=== PATIENT | male | born 2000 | race Two or more races ===

== ENCOUNTER 2023-06-07 18:45 | Emergency (ER) | payer SELFPAY ==
[2023-06-07] VITALS (13 sets, daily range): BP systolic 72–172; BP diastolic 31–118; PULSE 105–133; RESP 10–20; TEMP 35.3; O2SAT 98–100
--- NOTE | ~2023-06-07 | XR_ITS ---
EXAMINATION: [id number]_[id number]_CR DATE: 06/07/2023 19:27 INDICATION: Nasogastric tube placement TECHNIQUE: Portable AP view of the abdomen was obtained. COMPARISON: None. FINDINGS: Nasogastric tube tip at the gastroesophageal junction with proximal side-port in the distal esophagus . No dilated loops of gas-filled bowel in the abdomen. Heart size normal. Lung bases are clear. IMPRESSION: 1. Nasogastric tube tip at the gastroesophageal junction. Recommend advancement by 12.[address] bot h the tip and proximal side-port below the level of the gastroesophageal junction. Reviewed, dictated and finalized at location A. IMPRESSION: 1. Nasogastric tube tip at the gastroesophageal junction. Recommend advancement by 12.[address] both the tip and proximal side-port below the level of the g astroesophageal junction.
--- NOTE | ~2023-06-07 | CT_ITS ---
EXAMINATION: CT brain wo con DATE: 06/07/2023 19:43 INDICATION: Altered mental status. Cardiac arrest. TECHNIQUE: Computed tomography (CT) of the head was performed without intravenous contrast. Sagittal and coronal reconstructions were performed. The mA was adjusted according to patient size. Iterative reconstruction technique was employed. The dose-length product was 681.00 mGy-cm. COMPARISON: None FINDINGS: No acute intracranial hemorrhage or abnormal extra axial fluid collection. The degree of dorado-white m atter differentiation appears more subtle than typical and there is effacement of many of the bilater al sulci and partial effacement of the right lateral ventricle. Appearance suggests a global anoxic i njury with cerebral edema. Basal cisterns remain patent. No masses identified. The orbits and mastoid air cells are normal. Nasogastric tube which appears to coil in the pharynx. Endotracheal tube is se en extending through the oral cavity on the ship laborer topogram. Mild mucosal thickening in the bilateral ethmoid and maxillary sinuses. IMPRESSION: 1. Decreased conspicuity of the dorado-white matter differentiation and partial effacement of the sulci and right lateral ventricle which suggests possibility of diffuse cerebral cytotoxic edema in the se tting of global anoxic injury. Reviewed, dictated and finalized at location A. IMPRESSION: 1. Decreased conspicuity of the dorado-white matter differentiation and partial e ffacement of the sulci and right lateral ventricle which suggests possibility o f diffuse cerebral cytotoxic edema in the setting of global anoxic injury.
--- NOTE | ~2023-06-07 | CT_ITS ---
EXAMINATION: CT chest abdomen pelvis w con DATE: 06/07/2023 19:51 INDICATION: Cardiac arrest. Hanging. TECHNIQUE: Computed tomography (CT) of the chest, abdomen, and pelvis was performed with 100 mL Omnip aque-350 intravenous contrast. Automated exposure control and iterative reconstruction technique were employed. The dose-length product was 906.61 mGy-cm. COMPARISON: None FINDINGS: CHEST CT: Endotracheal tube 2.4 cm above the tong. Nasogastric tube with distal tip at the level of the gastr oesophageal junction. There are some bubbly mucus in the trachea and mainstem bronchi. Patchy consoli dation and groundglass opacities in the left lower lobe. Additional groundglass opacities and a few s mall centrilobular nodules in the suprahilar and posterior left upper lobe. There is also some linear discoid atelectasis in the bilateral lower lobes. No pulmonary edema, pleural effusion or pneumothor ax. Heart size is normal. Thoracic aorta is normal in caliber with no dissection. No pathologically e nlarged thoracic lymphadenopathy. Bones are unremarkable. ABDOMEN/PELVIS CT: Liver, spleen, pancreas, bilateral adrenal glands and kidneys are normal. There is fluid attenuation peripheral to the enhancing mucosa of the nondistended gallbladder without evident ascites throughout the remainder of the abdomen and pelvis suggesting edematous wall thickening of the gallbladder wall . There is prominent fluid throughout the large and small bowel consistent with diarrhea. No nikky sm all bowel dilation or transition point to suggest bowel obstruction. Fisher catheter within the bladde r which remains distended. No free intraperitoneal gas or fluid. No pathologically enlarged abdominal or pelvic lymphadenopathy. Small right hydrocele. Bones are unremarkable. IMPRESSION: 1. Opacities in the left upper and lower lobes suspicious for aspiration or pneumonia. 2. Nonspecific prominent edematous wall thickening of the gallbladder which is nondistended. 2. Thoracic fluid throughout the large and small bowel consistent with diarrhea indeterminate etiolog y. 4. Nasogastric tube tip at the gastroesophageal junction. Would recommend advancement however on CT i maging of the cervical spine there appears to be some redundancy to the tube which is coiled in the p harynx. This likely would require some withdrawal of the tubing to resolve the coiling in the pharynx prior to re-advancement. Reviewed, dictated and finalized at location A. IMPRESSION: 1. Opacities in the left upper and lower lobes suspicious for aspiration or pne umonia. 2. Nonspecific prominent edematous wall thickening of the gallbladder which is nondistended. 2. Thoracic fluid throughout the large and small bowel consistent with diarrhea indeterminate etiology. 4. Nasogastric tube tip at the gastroesophageal junction. Would recommend advan cement however on CT imaging of the cervical spine there appears to be some red undancy to the tube which is coiled in the pharynx. This likely would require s ome withdrawal of the tubing to resolve the coiling in the pharynx prior to re- advancement.
--- NOTE | ~2023-06-07 | CT_ITS ---
EXAMINATION: CTA neck, CT cervical spine wo con DATE: 06/07/2023 19:52 INDICATION: Hanging TECHNIQUE: 1. Computed tomography (CT) of the cervical spine was performed without intravenous contrast. Automat ed exposure control and iterative reconstruction technique were employed. The dose-length product was 505.10 mGy-cm. 2. Computed tomographic angiography (CTA) of the neck was performed with 100 mL Omnipaque-350 intrave nous contrast. Multiplanar reconstructions and maximum intensity projection 3D-reconstructions were c reated by the technologist on a separate workstation. The dose-length product was 591.43 mGy-cm. COMPARISON: None. FINDINGS: Cervical spine: Alignment is normal. Vertebral body and disc heights are normal. No fracture. Multilevel bilateral mi nimal to mild cervical uncovertebral osteoarthritis most prominent at C3-C4. Minimal cervical facet o steoarthritis. No central canal or neural foraminal stenosis. CT ANGIOGRAM: Visualized portion of the aortic arch is normal in caliber. There is no evident atherosclerotic plaqu e with 0% stenosis of the right and left carotid bulbs relative to normal distal artery lumen diamete r (NASCET criteria). Bilateral vertebral arteries are codominant. No evident dissection of the bilate ral carotid or vertebral arteries. The cerebral arteries also appear unremarkable with no evident ane urysm, stenosis or dissection. The bilateral A1 and P1 segments are patent. Cervical soft tissues are unremarkable. Endotracheal tube tip 2.2 cm above the tong. Nasogastric tube coils in the pharynx b efore extending caudally into the esophagus and below the inferior margin of the [id number]-ccot. There appears to be some bubbly mucus in the caudal-most trachea and proximal aspect of the bilateral main stem bronchi. Small region of consolidation at the superior segment of the left upper lobe which coul d be due to aspiration or atelectasis. Cervical soft tissues are unremarkable. IMPRESSION: 1. Minimal cervical spondylosis. No acute osseous abnormality. 2. Unremarkable carotid and vertebral artery CT angiogram with no stenosis or dissection. 3. Bubbly mucus in the distal trachea and proximal mainstem bronchi along with region of consolidatio n in the superior segment of the left upper lobe which given the history of cardiac arrest raises con cern for aspiration. 4. Some redundancy in the nasogastric tube which coils posterior nasopharynx but does extend distally along the esophagus beyond the inferior margin of the [id number]. Reviewed, dictated and finalized at location A. IMPRESSION: 1. Minimal cervical spondylosis. No acute osseous abnormality. 2. Unremarkable carotid and vertebral artery CT angiogram with no stenosis or d issection. 3. Bubbly mucus in the distal trachea and proximal mainstem bronchi along with region of consolidation in the superior segment of the left upper lobe which gi gerson the history of cardiac arrest raises concern for aspiration. 4. Some redundancy in the nasogastric tube which coils posterior nasopharynx bu t does extend distally along the esophagus beyond the inferior margin of the fi eld-of-view.
--- NOTE | ~2023-06-07 | XR_ITS ---
EXAMINATION: XR chest 1V portable DATE: 06/07/2023 19:12 INDICATION: Cardiac arrest. Intubation. TECHNIQUE: frontal view of the chest was obtained. COMPARISON: None FINDINGS: Endotracheal tube tip 3.1 cm above the tong. Nasogastric tube coiled back upon itself in the upper thoracic esophagus appearing to extend back into the pharynx and beyond the cephalad margin of the fi eld-of-view. Lungs are clear with no focal airspace opacities, pulmonary edema, pleural effusion or pneumothorax. The cardiomediastinal silhouette is normal. Visualized bones and soft tissues are unremarkable. IMPRESSION: 1. Endotracheal tube 3.1 cm above the tong. 2. Nasogastric tube coiled back upon itself in the upper thoracic esophagus. Recommend withdrawal and agree advancement. 3. No acute cardiopulmonary disease. Reviewed, dictated and finalized at location A. IMPRESSION: 1. Endotracheal tube 3.1 cm above the tong. 2. Nasogastric tube coiled back upon itself in the upper thoracic esophagus. Re commend withdrawal and agree advancement. 3. No acute cardiopulmonary disease.
--- NOTE | 2023-06-07 18:47 | PC.NURSE ---
PT WAS INTUBATED BY DR KIRK. 8.0 24 TEETH. +COLOR CHANGE. BREATH SOUNDS ++ BILATERALLY
[2023-06-07] MEDS: NOREPINEPHRINE 8 MG/D5W 250 ML 8 MG/250 ML BAG 18.8 MG (18:53)
--- NOTE | 2023-06-07 18:55 | ED.CPR ---
HPI - CPR General Chief Complaint: Cardiac Arrest/CPR Stated Complaint: cardiac arrest Time Seen by Provider: 06/07/23 18:55 History of Present Illness HPI narrative: Patient is a 22-year-old male brought here by EMS after cardiac arrest. All history obtained by EMS and police. 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 He was initially in [place]. CPR was performed. ROSC was obtained twice and he had ROSC on arrival to the emergency department. 7 epis given en route as well as 4mg of narcan. Police informed us that there were videos in the truck which showed patient had hung himself and the other concrete truck driver had removed the noose. There was additionally drug paraphernalia near him including a pipe and garage manager. Related Data Allergies Allergy/AdvReac Type Severity Reaction Status Date / Time No Known Allergies Allergy Verified 06/07/23 20:01 Review of Systems Review of Systems: ROS unobtainable: Yes unobtainable due to medical condition Exam Narrative: GENERAL: unresponsive HEAD: Normocephalic, atraumatic. EYES: pupils 5mm, non reactive NECK: ligature ibarra on anterior neck CHEST: No spontaneous respirations. Coarse bagged breath sounds. HEART: Tachycardic ABDOMEN: Soft, nondistended. EXTREMITIES: Normal range of motion. No evidence of trauma SKIN: Warm, dry, no rash. Ligature ibarra as described above. NEURO: Unresponsive, no gag reflex on intubation. Course Course Emergency Course: Patient seen evaluated on EMS arrival. Patient has igel in place with bagging respirations. He is unresponsive with a strong femoral pulse. Patient intubated by myself without difficulty, no medications required for intubation and placed on ventilator. Will do CT head, CTA neck, CT c-spine. CXR reviewed by myself showing appropriate tube placement. Patient hypotensive after intubation and started on levophed. After intubation, police arrived to tell us that patient was seen on video hanging himself. C-collar placed. [facility] notified of patient pending transfer. Head CT reviewed by myself, consistent with anoxic brain injury. Patient has occasional guppy breath, will start propofol for vent compliance. Hypertensive, norepinephrine cut in half to 5. Patient's norepinephrine decreased to 2.5. Will contact [facility] for transfer. Dr. Newton accepted patient for ED to ED transfer to [facility]. [facility] here to take patient. Norepi discontinued at this time given blood pressure. Vital Signs Vital signs: Vital Signs Pulse Rate 106 H 06/07/23 18:39 Respiratory Rate 20 06/07/23 18:39 Blood Pressure 72/31 L 06/07/23 18:39 Pulse Oximetry 100 06/07/23 18:39 Oxygen Delivery Mechanical Ventilation 06/07/23 18:39 Temperature 95.5 F L 06/07/23 19:05 Pulse Rate 118 H 06/07/23 20:45 Respiratory Rate 12 06/07/23 20:45 Blood Pressure 156/102 H 06/07/23 20:45 Pulse Oximetry 98 06/07/23 20:45 Oxygen Delivery Mechanical Ventilation 06/07/23 19:09 Fraction of Inspired Oxygen 100 06/07/23 19:09 Procedures Intubation Intubation #1: Intubation Date: 06/07/23 Time out performed: Yes sedative: none Laryngoscope: David Tube Size (cm): 8.0 Method of Intubation: orotracheal Number of Attempts: 1 Tube Secured Depth (cm): 24 Tube Secured Location: teeth Tube Placement Confirmation: visualized tube passing through cords, equal breath sounds bilaterally, no breath sounds over epigastrium and confirmation by capnometry Patient Tolerated Procedure: well and no complications Intubation Complications: none MDM - Cardiac Arrest/CPR Lab Data 06/07/23 18:45 06/07/23 18:45 Labs: Lab Results 06/07/23 06/07/23 Range/Units 18:45 19:11 WBC 11.8 H (4.5-10.0) K/mm3 RBC 4.14 L (4.6-6.20) M/mm3 Hgb 12.4 L (14.0-18.0) g/dL Hct 38.9 L (42.
--- NOTE | 2023-06-07 18:59 | ECG_ITS ---
Measurements Intervals [place] Rate: 103 P: 73 SD: 168 QRS: 79 QRSD: 114 T: 94 QT: 384 QTc: 505 Interpretive Statements SINUS TACHYCARDIA MODERATE INTRAVENTRICULAR CONDUCTION DELAY [110+ ms QRS DURATION] MARKED ST DEPRESSION, CONSIDER SUBENDOCARDIAL INJURY [0.2+ mV ST DEPRESSION] NO PREVIOUS ECG AVAILABLE FOR COMPARISON Electronically Signed On 06-08-2023 11:18:09 CDT by Juju Mackey M.D.
[2023-06-07 19:05] LABS: Hematocrit 38.9 % (42.0-52.0); Hemoglobin 12.4 g/dL (14.0-18.0); Mean Corpuscular HGB Conc 31.9 g/dl (32-36); Mean Platelet Volume 9.6 fl (7.4-10.4); Platelet Count Result 295 k/mm3 (150-375); Red Blood Count 4.14 M/mm3 (4.6-6.20); Red Cell Distribution Width 12.5 % (11.5-14.5); White Blood Count 11.8 K/mm3 (4.5-10.0)
[2023-06-07 19:15] LABS: INR 1.1; Prothrombin Time 15.1 Seconds (11.1-14.7)
[2023-06-07 19:16] LABS: Alkaline Phosphatase 63 U/L (38-126); Aspartate Amino Transferase 270 U/L (17-59); Bilirubin,Total 0.2 mg/dL (0.2-1.3); Blood Urea Nitrogen 9 mg/dL (9-20); Calcium 8.1 mg/dL (8.4-10.2); Carbon Dioxide 16 mmol/L (22-30); Chloride 96 mmol/L (98-107); Creatine Kinase 146 U/L (55-170); Estimated Glomerular Filt Rate 58; Glucose 398 mg/dL (65-110); Magnesium 2.8 mg/dL (1.6-2.3); Partial Thromboplastin Time 38.4 SECONDS (22.3-36.8); Potassium 3.1 mmol/L (3.4-5.0)
--- NOTE | 2023-06-07 19:18 | PC.NURSE ---
ADDITIONAL INFORMATION GIVEN TO US THAT THE PT HANG'S HIMSELF FOR EROTIC ASPHYXIATION AND THEIR IS VIDEO PROOF THAT PT DID THAT THIS AFTERNOON PRIOR TO BEING FOUND BY THE OTHER POSTAL SORTING OFFICER.
[2023-06-07 19:27] LABS: Alanine Aminotransferase 197 U/L (6-50); Anion Gap 18 mmol/L (8-16); Sodium 130 mmol/L (137-145)
[2023-06-07 19:31] LABS: Ethanol < 10 mg/dL (<10)
[2023-06-07 19:44] LABS: Amphetamine Screen Urine Negative (Negative); Barbiturate Screen Urine Negative (Negative); Benzodiazepines Screen Urine Negative (Negative); Cannabinoid Screen Urine Negative (Negative); Cocaine Screen Urine Negative (Negative); Methadone Screen Urine Negative (Negative); Opiate Screen Urine Negative (Negative); Phencyclidine Screen Urine Negative (Negative)
[2023-06-07 19:44] LABS: Troponin I 0.046 ng/mL (0.000-0.034)
[2023-06-07 19:49] LABS: Band Neutrophils Percent 4 % (0-6); Eosinophils Absolute Manual 0.11 K/mm3 (0.02-0.5); Eosinophils Percent Manual 1 % (0-4); Lymphocytes Absolute Manual 6.13 K/mm3 (1.1-4.5); Monocytes Absolute Manual 0.59 K/mm3 (0.1-0.90); Monocytes Percent Manual 5 % (3-9); Neutrophils Absolute Manual 4.95 K/mm3 (1.3-6.7); Neutrophils Percent Manual 38 % (46-73); Total Cells Counted 100
[2023-06-07 19:50] LABS: Platelet Estimate Adequate (Adequate); Schistocytes None Seen (NORMAL)
[2023-06-07 19:53] LABS: Appearance Urine Turbid (Clear); Bacteria Urine 4+ /hpf; Bilirubin Urine Negative (Negative); Blood Urine 1+ (Negative); Color Urine Yellow (Yellow); Glucose Urine UA 2+ mg/dL (Negative); Ketones Urine Negative (Negative); Leukocyte Esterase Ur Negative LEU/UL (Negative); Need Manual Microscopic Reviewed; Nitrate Urine Negative (Negative); Non Pathogenic Casts >20; Protein Urine 4+ mg/dL (Negative); Specific Grav Ur 1.014 (1.001-1.035); Squamous Epithelial Cell Urine Occasional /hpf (Few); Urobilinogen Urine 0.2 mg/dL (<2.0); WBC Urine 51-100 /hpf; pH Urine 7.5 (5.0-9.0)
[2023-06-07 19:54] LABS: Add Urine Microscopic? YES
[2023-06-07] MEDS: PROPOFOL IV EMULSION 100 ML 2.31 MG IV CONT (20:02)
--- NOTE | 2023-06-07 20:03 | PC.NURSE ---
EDP at bedside given verbal order for propofol for sedation.
--- NOTE | 2023-06-07 20:09 | PC.NURSE ---
advanced NG tube per EDP recommendation. tube at 80 cm.
--- NOTE | 2023-06-07 20:34 | PC.NURSE ---
report called to GARCÍA Mistry.
== END 2023-06-07 20:48 | disposition short-term general hospital (02) ==
PROVIDERS: Emergency Provider Student in an Organized Health Care Education/Training Program
DX: T71.162A Asphyxiation due to hanging, intentional self-harm, initial encounter (principal); I46.8 Cardiac arrest due to other underlying condition; M47.812 Spondylosis without myelopathy or radiculopathy, cervical region; R91.8 Other nonspecific abnormal finding of lung field; R93.3 Abnormal findings on diagnostic imaging of other parts of digestive tract; R00.0 Tachycardia, unspecified; I45.9 Conduction disorder, unspecified; R94.31 Abnormal electrocardiogram [ECG] [EKG]
CPT/HCPCS: 31500; 36415; 51702; 70450; 70498; 71045; 71260; 72125; 74177; 80053; 80307; 81001; 82550; 83735; 84484; 85025; 85610; 85730; 87086; 92950; 93005; 96365; 96375; 99291; J0171; J2310; J2704; J7030; L0140; Q9967